=== PATIENT | female | born 1970 | race Caucasian/White ===

== ENCOUNTER 2024-08-09 15:41 | Emergency (ER) | payer SELFPAY ==
[2024-08-09 15:43] VITALS: BP 175/127
[2024-08-09 16:17] LABS: % Basophils 0.6 % (0-2); % Eosinophils 0.1 % (0-6); % Immature Granulocytes 1.9 % (0-0.5); % Lymphocytes 15.3 % (20.5-51.1); % Neutrophils 76.1 % (42.2-75.2); Absolute Immature Granulocytes 0.1 10^3/uL (0-0.05); Absolute Lymphocytes 1.1 10^3/uL (1.2-3.4); Absolute Monocytes 0.4 10^3/uL (0.1-0.6); Absolute Neutrophils 5.5 10^3/uL (1.4-6.5); Hematocrit 40.3 % (37.0-47.0); Hemoglobin 14.4 g/dL (12.0-16.0); Mean Corp Hgb Conc. 35.7 g/dL (33.0-37.0); Mean Corpuscular Volume 92.4 fL (81.0-99.0); Mean Platelet Volume 9.1 fL (7.4-10.4); Nucleated Red Blood Cells % 0 %; Platelet Count 591 10^3/uL (130-400); Red Blood Cell Count 4.36 10^6/uL (4.20-5.40); Red Cell Dist. Width 11.7 % (11.5-14.5); White Blood Cell Count 7.2 10^3/uL (4.8-10.8)
[2024-08-09 16:28] LABS: ALT (SGPT) 42 U/L (0-35); AST (SGOT) 23 U/L (14-36); Alkaline Phosphatase 84 U/L (38-126); Blood Urea Nitrogen 16 mg/dl (7-17); Calcium 10.3 mg/dl (8.4-10.2); Carbon Dioxide 25 mmol/L (22-30); Chloride 99 mmol/L (98-107); Glucose 169 mg/dl (70-99); Potassium 4.9 mmol/L (3.5-5.1); Sodium 136 mmol/L (135-145); Total Bilirubin 0.6 mg/dl (0.2-1.3); Total Protein 8.1 g/dl (6.3-8.2); eGFR > 60.00
[2024-08-09 16:33] LABS: COVID-19 Antigen Negative (Negative)
[2024-08-09 17:20] VITALS: BP 132/83
--- NOTE | 2024-08-09 17:35 | ED.GENMED ---
History of Present Illness
General
Chief Complaint: Cough
Source: patient
Exam Limitations: none
Time Seen by Provider: 08/09/24 17:23
History of Present Illness
History of Present Illness:
See MDM
Past History
Past History
ED Past Medical History: None
ED Past Surgical History: Orthopedic
Social History
Tobacco: Smoker
Alcohol: None
Phy Exam
Physical Exam
Physical Exam:
See MDM
Course
Orders/Labs/Results
Orders:
Orders
08/09/24 15:47
Chest [CR Chest - 2 Views ] Urgent
Comment:
Reason For Exam: cough
08/09/24 15:53
COVID-19 Antigen Urgent
Source: Nasal Swab
Complete Blood Count/With Diff Urgent
Comprehensive Metabolic Panel Urgent
Influenza A+B Rapid Molecular Urgent
[place] Source: Nasal Swab
Specimen Description:
08/09/24 17:34
Azithromycin [Zithromax] 500 mg PO NOW STA
Ipratropium/Albuterol Sulfate [Duoneb] 3 ml INH R NOW ONE
Abnormal Lab Results
08/09/24
15:53
MCH 33.0 H pg
(27.0-31.0)
Plt Count 591 H 10^3/uL
(130-400)
Abs Immat Gran (auto) 0.1 H 10^3/uL
(0-0.05)
Absolute Lymphs (auto) 1.1 L 10^3/uL
(1.2-3.4)
Immature Gran % 1.9 H %
(0-0.5)
Neutrophils % 76.1 H %
(42.2-75.2)
Lymphocytes % 15.3 L %
(20.5-51.1)
Glucose 169 H mg/dl
(70-99)
Calcium 10.3 H mg/dl
(8.4-10.2)
ALT 42 H U/L
(0-35)
08/09/24 15:53
08/09/24 15:53
Vital Signs
Initial and Last Documented VS:
Initial Vital Signs
Temp Pulse Resp BP Pulse Ox
98.4 F 93 18 175/127 99
08/09/24 15:43 08/09/24 15:43 08/09/24 15:43 08/09/24 15:43 08/09/24 15:43
Last Documented Vital Signs
Temp Pulse Resp BP Pulse Ox
98.4 F 112 16 132/83 95
08/09/24 15:43 08/09/24 17:20 08/09/24 17:22 08/09/24 17:20 08/09/24 17:20
MDM/Problems Addressed
Differential Diagnosis Includes:
HPI and MDM Narrative:
54-year-old female presenting for evaluation of persistent cough. This has been ongoing for the past couple weeks. She does note a faint wheeze when she breathes out. She recently started taking a prednisone taper and amoxicillin with minimal to
no relief. Blood work and chest x-ray done prior to my assessment. Chest x-ray clear. On my exam, she does have evidence of bronchospasm. I will switch the amoxicillin to azithromycin. Patient given DuoNeb. Will write for codeine cough
medicine. I discussed continuing her steroid taper but will add Advair and albuterol as needed
Physical exam
General: Well appearing and non-toxic
HEENT: protecting airway. Postnasal drip
Neck: appears supple
CV: No evidence of cyanosis
Resp: No accessory muscle use. Bronchospastic cough
Abd: Non-distended
Extremities: No deformities
Neuro: alert
Psych: Normal affect
Skin: Intact
Problems Addressed including Acute and Chronic Conditions affecting care:
1. Bronchospasm
Acuity: acute
Prognosis: stable
Details: Discussed continuing the steroids. Will switch amoxicillin to azithromycin given her smoking history. Will write for codeine cough medicine in addition to albuterol and Advair
Differential Diagnosis (but not limited to): Viral syndrome, pneumonia, bronchitis
Testing considered: Pertussis testing
Drug therapy (if applicable): OTC meds, please see d/c instruction regarding Rx drugs
Amount and/or Complexity of Data Reviewed
Clinical info obtained from: Patient
External data reviewed: N/A
Labs I independently reviewed (but not limited to): White blood cell count normal
Radiology: X-ray independently reviewed: Chest x-ray clear
Pulse Ox: not hypoxic
EKG independently reviewed: N/A
Tent Finisher: N/A
Critical Care: N/A
Risk of Complication:
Social Determinants of health: Good social support
Discussed with other providers: N/A
Escalation of Care includes Admit/Obs: After being observed in the Emergency Department, pt stable for discharge.
Occasional wrong word or 'sound a like' substitutions may have occurred due to the inherent limitations of voice recognition software. Read the chart carefully and recognize, using context, where substitutions have occurred.
*Critical Care Note
Total Time (30-74mins, 75-104mins- exclusive of procedures): Not Applicable
ED Attending Note
-
Portions of this chart may have been created with voice recognition software.� Occasional wrong word or��sound alike� substitutions may have occurred due to the inherent limitations of voice recognition software.
Discharge Plan
Departure
Patient Disposition: Home (Routine Discharge)
Date of Disposition: 08/09/24
Time of Disposition: 17:36
Patient with high blood pressure during this ER visit?: No
Discharge Problem:
Acute bronchospasm
Instructions: Viral Upper Respiratory Infection, Adult (DC)
Prescriptions:
New
albuterol sulfate 90 mcg/actuation HFA aerosol inhaler
2 puff inhalation Q6H PRN (Reason: shortness of breath or wheezing) Qty: 8.5 0RF
fluticasone propion-salmeterol [Advair Diskus] 250-50 mcg/dose blister with device
1 inh inhalation BID Qty: 60 0RF
(DME) [employer] Spacer-Mask,Adult Spacer
See Rx Instructions .ROUTE Qty: 1 0RF
Rx Instructions:
As directed
azithromycin 250 mg tablet
250 mg PO DAILY 4 Days Qty: 4 0RF
codeine-guaifenesin 10-100 mg/5 mL liquid
10 ml PO Q6H PRN (Reason: Cough) Qty: 200 0RF
Referrals:
NONE,* [Family Provider] -
Activity Restrictions/Additional Instructions:
Please return for any worsening symptoms.
You may return at any time if you have further concerns.
Please follow up with your doctor at the first available appointment, preferably this week.
You were given a dose of azithromycin today. You can start the prescription tomorrow. You can stop the amoxicillin.
Please continue your steroids.
Please wash your mouth after using the inhaled steroid. Without doing so can result in thrush.
Thank you for choosing [facility].
Interventions
Interventions:
*General Assessment Last Done: 08/09/24 15:43
*Neglect/Abuse Screening Last Done: 08/09/24 15:43
*ED COVID-19 Vaccine History Last Done: 08/09/24 15:43
ED- Pulmonary Assessment Last Done: 08/09/24 17:03
Discharge Date and Time
Print Language: [id number]
[2024-08-09] MEDS: DUONEB 3 ML INH (17:41)
[2024-08-09] MEDS: ZITHROMAX 500 MG PO (17:41)
== END 2024-08-09 17:54 | disposition home or self-care (01) ==
LOC: EMR 15:41
PROVIDERS: EMERGENCY PHYSICIAN Student in an Organized Health Care Education/Training Program
DX: J98.01 Acute bronchospasm (principal); F17.200 Nicotine dependence, unspecified, uncomplicated; Z11.52 Encounter for screening for COVID-19
CPT/HCPCS: 99284; 94640; 71046; 80053; 85025; 87502; 87811